=== PATIENT | female | born 1940 | race Caucasian/White ===

== ENCOUNTER → 2020-06-02 | Outpatient (CLI) | payer MEDICARE, OTHER ==
[~2020-06-02] MED LIST: ALBU2.5V8 IH; ASPI-630 PO; AZIT250T PO; BENZ100C PO; CITA40TA12 PO; CYAN-25 PO; LIPITOR80 MG PO; VALS320T2 PO
--- NOTE | 2020-06-02 15:00 | RAD ---
CT LUMBAR SPINE WO CONTRAST History: Severe back pain from the left flank to the left lower quadrant Technique: Noncontrast CT imaging was performed of the lumbar spine, multiplanar reconstruction images submitted. One or more of the following individualized dose reduction techniques were utilized for this examination: 1. Automated exposure control 2. Adjustment of the mA and/or kV according to patient size 3. Use of iterative reconstruction technique. Comparison: CT abdomen pelvis November 03, 2019 Findings: There is old compression deformity superiorly of L5, L4, and L3 as seen previously, osseous retropulsion superiorly at these levels. There has been interval development of severe compression deformity greater centrally of the L1 vertebral body, minimal osseous retropulsion superiorly and inferiorly. There is severe bone demineralization. There is mild levoscoliosis centered upon the mid lumbar spine. There is multilevel lumbar facet degenerative change. There is grade 1 anterior spondylolisthesis at L5-S1. There is likely moderate spinal stenosis including narrowing of left lateral recesses bilaterally at L3-4 and to a somewhat lesser degree at L4-5, minimally at L2-L3. There is likely moderate to severe narrowing of the left L5-S1 neural foramen by facet degenerative change and disc osteophyte complex, other mild narrowing also present. 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 There is some gas in the visualized urinary bladder, not fully included. There is sigmoid diverticulosis. There is emphysema of the visualized lung bases. There is elevation of the left hemidiaphragm. There are again some hypodense foci of the bilateral kidneys otherwise difficult to fully accurately characterize, also some small left renal calcifications. IMPRESSION: 1. Compared with October 2019 exam, there is now severe compression deformity of L1 with mild osseous retropulsion, probably acute especially if focal point tenderness. There is again old compression deformity of L3, L4, and L5, associated osseous retropulsion superiorly. There is bone demineralization. 2. There is some gas in the urinary bladder lumen. Findings could be due to recent catheterization if corresponding history. If there has not been recent catheterization, infection with gas-forming organism or less likely fistula cannot be excluded. 3. There is sigmoid colonic diverticulosis. 4. 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 5. There is probable moderate spinal stenosis at L3-4 and to lesser degree at L4-5. Electronically signed by: Isaiah Velasquez MD (06/02/2020 2:57 PM) [facility]
== END | disposition home or self-care (01) ==
LOC: CT 09:49
PROVIDERS: ATTEND Internal Medicine
DX: M43.17 Spondylolisthesis, lumbosacral region (principal); M43.8X6 Other specified deforming dorsopathies, lumbar region; M48.061 Spinal stenosis, lumbar region without neurogenic claudication; M25.78 Osteophyte, vertebrae; I71.9 Aortic aneurysm of unspecified site, without rupture; K57.30 Diverticulosis of large intestine without perforation or abscess without bleeding; J43.9 Emphysema, unspecified; N28.89 Other specified disorders of kidney and ureter; Q79.1 Other congenital malformations of diaphragm
CPT/HCPCS: 72131